=== PATIENT | male | born 1965 | race Caucasian/White ===

== ENCOUNTER 2022-12-12 17:04 | Emergency (ER) | payer OTHER ==
[~2022-12-12] VITALS: Ht 165.1 cm; Wt 90.7 kg
--- NOTE | 2022-12-12 17:14 | NUR ---
MSE in progress by Dr Macedo.
--- NOTE | 2022-12-12 17:16 | NUR ---
Patient discharged to home in stable condition. Written and verbal after care instructions given. Patient verbalizes understanding of instructions. Stressed follow up or return to ER for worsening s/s.
[2022-12-12 17:17] VITALS: BP 125/71
== END 2022-12-12 17:17 | disposition home or self-care (01) ==
LOC: ER 17:04
DX: R51.9 Headache, unspecified (principal); I10 Essential (primary) hypertension
CPT/HCPCS: A4663